=== PATIENT | male | born 1960 | race Two or more races ===

== ENCOUNTER 2025-03-25 07:08 | Emergency (ER) | payer MEDICAID, SELFPAY ==
[2025-03-25 07:11] VITALS: BP 132/77; PULSE 90; RESP 18; TEMP 36.8; O2SAT 97
[2025-03-25 07:12] VITALS: BMI 26.6
[2025-03-25 07:25] VITALS: PULSE 98; RESP 19; O2SAT 98
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
[2025-03-25 08:11] VITALS: BP 131/79; PULSE 92; RESP 18; O2SAT 98
[2025-03-25 08:41] VITALS: BP 131/76; PULSE 91; RESP 18; TEMP 36.4; O2SAT 98
== END 2025-03-25 08:40 | disposition home or self-care (01) ==
LOC: SERX 09:17
PROVIDERS: Emergency Provider Family Medicine; PCP Family Medicine
DX: Z04.1 Encounter for examination and observation following transport accident (principal); F43.29 Adjustment disorder with other symptoms
CPT/HCPCS: 99281